=== PATIENT | female | born 1990 | race Caucasian/White ===

== ENCOUNTER → 2025-08-02 08:32 | Outpatient (REF) | payer OTHER, SELFPAY | LOC: HWRAD 08:32 | PROVIDERS: ATTENDING PHYSICIAN Internal Medicine Rheumatology; FAMILY PHYSICIAN Student in an Organized Health Care Education/Training Program | DX: H04.123 Dry eye syndrome of bilateral lacrimal glands (principal); M35.9 Systemic involvement of connective tissue, unspecified; M54.50 Low back pain, unspecified; L50.1 Idiopathic urticaria | CPT/HCPCS: 72110 ==